=== PATIENT | male | born 1995 | race Caucasian/White ===

== ENCOUNTER 2022-01-29 15:56 | Emergency (ER) | payer MEDICAID ==
[~2022-01-29] VITALS: Ht 167.6 cm; Wt 59.0 kg
[2022-01-29 16:15] VITALS: BP_SYST 117
--- NOTE | 2022-01-29 16:48 | NUR ---
PATIENT BROUGHT IN COMPLAINING OF SORE THROAT WITH SWOLLEN LYMPH NODES X 2 DAYS. PATIENT REPORTS HAVING FATIGUE AND BODY ACHES 6 DAYS AGO WITH FEVER BUT HAS SINCE RESOLVED. TESTED NEGATIVE FOR COVID TWICE. DENIES ANY PAIN .
--- NOTE | 2022-01-29 21:24 | NUR ---
Patient to ER CHAIR for evaluation. Report given to CINDY ALLEN
[2022-01-29 22:16] LABS: STREPTOCOCCUS A SCREEN (RAPID) NEGATIVE (NEGATIVE)
--- NOTE | 2022-01-29 22:19 | NUR ---
MAURO Yusuf at bedside examining patient.
[2022-01-29] MEDS ORDERED: DEXAMETHASONE SOD PHOSPHATE 10 MG/ML VIAL PO ONE (22:30)
[2022-01-29 22:54] LABS: BASOPHILS % (AUTO) 0.4 % (0.0-2.0); MONOCYTES # (AUTO) 0.7 K/uL (0.0-1.0); NEUTROPHILS # (AUTO) 3.1 K/uL (1.8-7.7); NEUTROPHILS % (AUTO) 60.7 % (40.0-70.0); RED BLOOD CELL COUNT(AUTO) 5.53 MIL/uL (4.2-6.2); RED CELL DISTRIBUTION WIDTH 12.4 % (9.0-15.0); WHITE BLOOD COUNT (AUTO) 5.2 K/uL (4.8-10.8)
[2022-01-29 22:55] LABS: CALCIUM 9.7 mg/dL (8.4-11.0); CREATININE 0.91 mg/dL (0.55-1.30)
[2022-01-29 23:00] LABS: ALBUMIN 4.6 g/dL (3.4-4.8); TOTAL BILIRUBIN 0.8 mg/dL (0.0-1.0)
[2022-01-29 23:04] LABS: EOSINOPHILS % (AUTO) 0.9 % (0.0-4.0); HEMATOCRIT 50.3 % (36-54); HEMOGLOBIN 17.7 g/dL (14.0-18.0); LYMPHOCYTES # (AUTO) 1.2 K/uL (1.0-5.5); LYMPHOCYTES % (AUTO) 23.7 % (20.5-51.5); MEAN CORPUSCULAR HEMOGLOBIN 32 pg (27-31); MEAN CORPUSCULAR HGB CONC 35 % (32-36); MEAN CORPUSCULAR VOLUME 91 fL (79.0-98.0); MONOCYTES % (AUTO) 14.3 % (1.7-9.3); PLATELET COUNT (AUTO) 219 K/uL (130-430)
[2022-01-29] MEDS ORDERED: IBUP-1969 PO (23:42)
[2022-01-29] MEDS ORDERED: TRAM50TA2 PO (23:42)
[2022-01-30 00:04] VITALS: BP_SYST 122
--- NOTE | 2022-01-30 00:04 | NUR ---
Patient given written and verbal discharge instructions and verbalizes understanding. ER DR. WHITE discussed with patient the results and treatment provided. Patient in stable condition. ID arm band removed. Rx of MOTRIN given. Patient educated on pain management and to follow up with PMD. Pain Scale 0. Opportunity for questions provided and answered. Medication side effect fact sheet provided.
== END 2022-01-30 00:04 | disposition home or self-care (01) ==
LOC: SED 15:56
DX: K11.21 Acute sialoadenitis (principal); R05.9 Cough, unspecified; J02.9 Acute pharyngitis, unspecified; Z79.899 Other long term (current) drug therapy; Z20.822 Contact with and (suspected) exposure to COVID-19
CPT/HCPCS: 99283; 87426; 80053; 82150; 85025; 86308; 86403; 36415; 87081; 87804 ×2; J1100